=== PATIENT | female | born 1985 | race Caucasian/White ===

== ENCOUNTER → 2021-10-08 11:39 | Outpatient (CLI) | payer OTHER, SELFPAY ==
[2021-10-08 11:59] LABS: Add Manual Diff / Slide Review NO; Basophils Absolute Auto 100 /uL (0-100); Eosinophils Absolute Auto 200 /uL (0-450); Eosinophils Percent Auto 2.1 % (2-4); Hematocrit 37.6 % (36-46); Hemoglobin 12.9 g/dL (12.0-16.0); Lymphocytes Absolute Auto 1200 /uL (1100-4500); Lymphocytes Percent Auto 14.2 % (25-40); Mean Corpuscular HGB Conc 34.3 % (30-36); Mean Corpuscular Volume 81.8 fL (80-100); Monocytes Absolute Auto 600 /uL (0-900); Monocytes Percent Auto 7.8 % (3-14); Neutrophils Absolute Auto 6200 /uL (1500-7000); Neutrophils Percent Auto 74.9 % (50-75); Platelet Count 247 X10^3/uL (150-400); White Blood Cell Count 8.2 X10^3/uL (4.5-11.0)
[2021-10-08 12:14] LABS: Erythrocyte Sedimentation Rate 44 MM/HR (0-20)
[2021-10-08 12:15] LABS: Alanine Aminotransferase 17 IU/L (<35); Albumin 4.8 g/dL (3.5-5.0); Albumin Globulin Ratio 1.5 (1.0-2.8); Alkaline Phosphatase 71 U/L (38-126); Aspartate Aminotransferase 31 IU/L (14-36); BUN Creatinine Ratio 12.7 (6-22); Bilirubin Total 0.5 mg/dL (0.2-1.3); Blood Urea Nitrogen 7 mg/dL (7-17); Calcium 9.3 mg/dL (8.4-10.2); Carbon Dioxide 26 mmol/L (22-32); Chloride 105 mmol/L (98-107); Estimated Glomerular Filt Rate > 60 mL/min (>60); Globulin 3.2 g/dL (1.7-4.1); Glucose 106 mg/dL (70-100); HEMOLYSIS < 15 (0-50); Potassium 3.8 mmol/L (3.4-5.1); Sodium 141 mmol/L (137-145)
[2021-10-08 12:18] LABS: Rheumatoid Factor < 8.6 IU/mL (<12.0)
[2021-10-11 17:16] LABS: ANA Screen, IFA Negative (.)
== END ==
PROVIDERS: Referring Provider Family Medicine; Visit Provider Family Medicine
DX: R21 Rash and other nonspecific skin eruption (principal)
CPT/HCPCS: 36415; 80053; 85025; 85651; 86038; 86430

== ENCOUNTER → 2022-03-17 17:13 | Outpatient (CLI) | payer OTHER, SELFPAY ==
[2022-03-17 18:05] LABS: Add Manual Diff / Slide Review NO; Basophils Absolute Auto 100 /uL (0-100); Basophils Percent Auto 0.7 % (0-2); Eosinophils Absolute Auto 100 /uL (0-450); Eosinophils Percent Auto 0.6 % (2-4); Hematocrit 33.6 % (36-46); Hemoglobin 11.4 g/dL (12.0-16.0); Lymphocytes Absolute Auto 2100 /uL (1100-4500); Lymphocytes Percent Auto 19.1 % (25-40); Mean Corpuscular HGB Conc 34.1 % (30-36); Mean Corpuscular Hemoglobin 28.1 PG (26-34); Mean Corpuscular Volume 82.3 fL (80-100); Monocytes Absolute Auto 900 /uL (0-900); Monocytes Percent Auto 7.9 % (3-14); Neutrophils Absolute Auto 7700 /uL (1500-7000); Neutrophils Percent Auto 71.7 % (50-75); Platelet Count 277 X10^3/uL (150-400); Red Blood Cell Count 4.08 X10^6/uL (4.0-5.2); Red Cell Distribution Width 13.8 % (11.6-14.8); White Blood Cell Count 10.7 X10^3/uL (4.5-11.0)
[2022-03-17 18:29] LABS: Alanine Aminotransferase 15 IU/L (<35); Albumin 4.3 g/dL (3.5-5.0); Albumin Globulin Ratio 1.3 (1.0-2.8); Alkaline Phosphatase 69 U/L (38-126); Aspartate Aminotransferase 19 IU/L (14-36); Bilirubin Total 0.7 mg/dL (0.2-1.3); Blood Urea Nitrogen 7 mg/dL (7-17); Calcium 9.1 mg/dL (8.4-10.2); Carbon Dioxide 26 mmol/L (22-32); Chloride 98 mmol/L (98-107); Cholesterol 138 mg/dL (140-199); Estimated Glomerular Filt Rate > 60 mL/min (>60); Globulin 3.4 g/dL (1.7-4.1); Glucose 95 mg/dL (70-100); HDL Cholesterol 46 mg/dL (40-60); HEMOLYSIS < 15 (0-50); LDL Cholesterol Calculated 82 mg/dL (<100); Potassium 3.6 mmol/L (3.4-5.1); Sodium 139 mmol/L (137-145); Total Protein 7.7 g/dL (6.3-8.2); Triglycerides 51 mg/dL (35-150)
[2022-03-17 18:56] LABS: TSH w/ Reflex to FT4 0.42 uIU/mL (0.47-4.68)
[2022-03-17 19:45] LABS: Free T4, Direct Thyroxine 1.18 ng/dL (0.78-2.19)
== END ==
PROVIDERS: PCP Family Medicine; Referring Provider Family Medicine; Visit Provider Family Medicine
DX: Z00.00 Encounter for general adult medical examination without abnormal findings (principal)
CPT/HCPCS: 36415; 80053; 80061; 84439; 84443; 85025

== ENCOUNTER → 2022-06-20 12:09 | Outpatient (CLI) | payer OTHER, SELFPAY ==
--- NOTE | 2022-06-20 12:10 | DI.US.S_ITS ---
PROCEDURE: US PELVIC COMPLETE INDICATIONS: PCOS TECHNIQUE: Real-time scanning was performed of the pelvic organs, with image documentation. Additional endovaginal scanning was necessary due to incomplete visualization of the adnexal and endometrial structures by transabdominal scanning. COMPARISON: None. FINDINGS: Uterus: Uterus is retroverted and normal in size at 8.2 x 4.6 x 6.6 cm. The myometrium is homogeneous. The endometrium measures 15.3 mm combined thickness. Ovaries: The right ovary measures 4.1 x 2.5 x 2.8 cm, with a calculated ovarian volume of 14.4 cc. The left ovary measures 4.9 x 4.3 x 4.6 cm, with a calculated ovarian volume of 51 cc. Less than 12 follicles can be seen in each ovary. Complex ovarian cysts are seen bilaterally, each of which contain fine low level internal echoes with the largest on the left measuring up to 4.6 cm. Other: No pathologic free abdominal or pelvic fluid. IMPRESSION: 1. No sonographic evidence for polycystic ovarian syndrome. 2. Bilateral complex ovarian cyst, each of which contain fine low level internal echoes suggestive of a hemorrhagic ovarian cysts versus endometriomas. Short-term follow-up pelvic ultrasound in 6-12 weeks is recommended to assess for temporal stability and/or resolution. We strive to produce accurate, complete, and clear reports of imaging services. To assist us in improving patient care, this report was composed using standard report templates and voice recognition software. Therefore, it may contain abnormal punctuation, insertions and/or omissions. Occasional wrong-word or sound-alike substitutions may occur. Though we review the report and make efforts to correct it, we do recommend that the report be read carefully in proper context to recognize any text inaccuracies. Dictated by: Alexis Andrade Amado Interpreted: Mateus Boyd MD on 06/20/2022 at 13:03 Transcribed by: MANFRED on 06/20/2022 at 13:05 Approved by: Mateus Boyd M.D. on 06/20/2022 at 13:58
== END ==
PROVIDERS: PCP Family Medicine; Referring Provider Family Medicine; Visit Provider Family Medicine
DX: N83.291 Other ovarian cyst, right side; N83.292 Other ovarian cyst, left side
CPT/HCPCS: 76830; 76856; 93975

== ENCOUNTER 2022-07-28 14:01 | Day surgery (SDC) | payer OTHER, SELFPAY ==
--- NOTE | 2022-07-28 | PATH_ITS ---
[facility] Accession Number: [id number] No. of containers..01 Tissue . 01 Material submitted: . colon - TRANSVERSE COLON POLYP . 01 Diagnosis: Transverse Colon, Polyp, Biopsy: Tubular adenoma, 2 fragments. ARMANI 08/02/2022 0950 Local . 01 Electronically signed: . Fatmata Lutz MD, Pathologist NPI- [id number] . 01 Gross description: . TRANSVERSE COLON POLYP: Received in formalin are 2 fragment(s) of peralta, soft tissue measuring 0.5 x 0.4 x 0.3 cm to 0.4 x 0.3 x 0.3 cm submitted entirely in 1 cassette(s) /CPE 07/29/2022 0635 Local . 01 Pathologist provided ICD-10: D12.3 . 01 CPT . 250916 Specimen Comment: A courtesy copy of this report has been sent to [phone] Performed at: 01 [facility] [address] [place] [address] [address] [facility], [place], [place] [id number] MD Manpreet Barker MD Phone: [phone]
[2022-07-28 14:12] VITALS: BP 128/79; PULSE 75; RESP 12; TEMP 36.8; O2SAT 100; BMI 21.1
[2022-07-28] MEDS: LACTATED RINGERS 1,000 ML 42 ML IV (14:21)
--- NOTE | 2022-07-28 14:54 | P.HP_ITS ---
History of Present Illness History of Present Illness Date Patient Seen: 07/28/22 Time Patient Seen: 14:54 Chief complaint: Colonoscopy w/hemorrhoid banding Narrative: Rebecca is here for her colonoscopy and banding procedure. No significant changes since office visit in June. Patient History Medical History Abnormal Pap smear of cervix (~2020) Allergies Anemia Anxiety (~2015) Asthma Chicken pox (~2013) Fracture (~2015) Headache Heavy menstrual period (~2020) Hemorrhoid (~2015) Human papilloma virus (~2020) Migraines Osteoarthritis (~2020) Painful menstrual periods (~2020) Polycystic ovarian syndrome Rash and nonspecific skin eruption Well adult exam Surgical History Anesthesia History of tubal ligation (~2016) [place] teeth removed Family & Social History Family History Father Diabetes mellitus Hypertension Mental health problem Parkinson's disease Brother Cancer Hypertension Mental health problem Quadriplegia Social History: household members spouse Tobacco & Substance use: Smoking Status Former smoker alcohol intake current alcohol intake frequency holiday/special occasion Substance Use Type does not use Meds Home Medications and Allergies Allergies Allergy/AdvReac Type Severity Reaction Status Date / Time Neomycin, polymyxin B, and AdvReac Severe Swelling Uncoded 07/28/22 14:12 hydrocortisone Orajel AdvReac Severe pain Uncoded 07/28/22 14:12 Promethazine with codeine AdvReac Severe Migraine Uncoded 07/28/22 14:12 Imitrex AdvReac Intermediate Uncoded 07/28/22 14:12 gabapentin AdvReac Mild Uncoded 07/28/22 14:12 Toradol AdvReac Mild Migraine Uncoded 07/28/22 14:12 Sulfa AdvReac Rash Uncoded 07/28/22 14:12 Exam Vital Signs (past 8 hours): - 07/28/22 14:12 Temperature 98.3 F Pulse Rate 75 Respiratory Rate 12 Blood Pressure 128/79 Pulse Oximetry 100 Oxygen Delivery Method Room Air Oxygen Delivery Method Room Air Const General: healthy appearing Assessment & Plan Assessment and plan (1) Grade IV hemorrhoids: Status: Acute Plan She would like proceed with colonoscopy and rubber-band ligation. Time Spent With Patient Critical Care time: I spent a total of [] minutes of critical care time on this patient's care today; this time is exclusive of procedural time.
--- NOTE | 2022-07-28 15:39 | PM.OP.COLON ---
Operative Date/Time/Diagnoses Date of procedure: 07/28/22 Time of procedure: 15:39 Pre-op diagnosis: Hemorrhoids and rectal bleeding Post-op diagnosis: same Procedure & Clinicians Study performed: Colonoscopy and rubber-band ligation Same procedure as scheduled: Yes Surgeon: Rudolph Kern Procedure Notes Procedure in detail: Surgeon: Rudolph Kern MD Anesthesia: Oneyda Nichols CRNA Procedure: The patient was brought to the endoscopy suite, placed in left lateral decubitus position. The patient was connected to monitoring devices. A time-out was performed. Sedation was administered. Once the patient was adequately sedated, a digital rectal exam was performed and was normal. The scope was then inserted and advanced to the cecum where the appendiceal orifice was identified and photographed. The scope was then slowly withdrawn over greater than 6 minutes. The mucosa was thoroughly inspected. There was a 1.2 cm pedunculated polyp in the transverse colon. The polyp was removed with hot snare. The polyp was divided with the snare to allow suctioning into the trap. A tattoo was placed in the mucosa next to the polypectomy scar. No other abnormalities were noted throughout the colon. The scope was retroflexed in the rectum. Internal hemorrhoids were seen. The scope was straightened and removed. Next, the anoscope was inserted and rubber band ligation was performed of the hemorrhoid column in the left lateral, right anterior and right posterior position. Hemostasis was confirmed. The patient was awakened and brought to recovery. Scope withdrawal time: 9 minutes Sedation time: 27 minutes EBL: 2 mL Findings: 1.2 cm pedunculated polyp in the transverse colon and internal hemorrhoids Post-procedure Disposition: PACU
[2022-07-28 15:40] VITALS: BP 96/60; PULSE 60; RESP 14; TEMP 36.4; O2SAT 100
[2022-07-28 15:45] VITALS: BP 101/62; PULSE 65; RESP 15; O2SAT 100
[2022-07-28 15:50] VITALS: BP 110/65; PULSE 66; RESP 15; TEMP 36.9; O2SAT 100
[2022-07-28 16:10] VITALS: BP 111/62; PULSE 66; RESP 15; TEMP 36.7; O2SAT 100
== END 2022-07-28 16:14 | disposition home or self-care (01) ==
PROVIDERS: PCP Family Medicine; Referring Provider Surgery; Visit Provider Surgery
PROC: 0DJD8ZZ Inspection of Lower Intestinal Tract, Via Natural or Artificial Opening Endoscopic (ICD-10-PCS; CPT 45378; principal; 2022-07-28 15:00)
DX: K64.3 Fourth degree hemorrhoids (principal); K62.5 Hemorrhage of anus and rectum; D12.3 Benign neoplasm of transverse colon
CPT/HCPCS: 45385; 46221; J2704; J3010

== ENCOUNTER → 2023-11-18 08:17 | Outpatient (CLI) | payer OTHER, SELFPAY ==
[2023-11-18 09:07] LABS: Add Manual Diff / Slide Review NO; Basophils Absolute Auto 100 /uL (0-100); Basophils Percent Auto 0.7 % (0-2); Eosinophils Absolute Auto 100 /uL (0-450); Eosinophils Percent Auto 0.6 % (2-4); Hematocrit 35.8 % (36-46); Hemoglobin 11.9 g/dL (12.0-16.0); Lymphocytes Absolute Auto 1600 /uL (1100-4500); Lymphocytes Percent Auto 17.8 % (25-40); Mean Corpuscular HGB Conc 33.2 % (30-36); Mean Corpuscular Hemoglobin 27.1 PG (26-34); Mean Corpuscular Volume 81.4 fL (80-100); Monocytes Absolute Auto 1000 /uL (0-900); Monocytes Percent Auto 11.3 % (3-14); Neutrophils Absolute Auto 6100 /uL (1500-7000); Neutrophils Percent Auto 69.6 % (50-75); Platelet Count 271 X10^3/uL (150-400); Red Cell Distribution Width 15.3 % (11.6-14.8); White Blood Cell Count 8.8 X10^3/uL (4.5-11.0)
[2023-11-18 09:18] LABS: HEMOLYSIS < 15 (0-50); Iron 29 ug/dL (37-170)
[2023-11-18 09:21] LABS: Alanine Aminotransferase 11 IU/L (<35); Albumin 4.7 g/dL (3.5-5.0); Albumin Globulin Ratio 1.4 (1.0-2.8); Alkaline Phosphatase 65 U/L (38-126); Aspartate Aminotransferase 19 IU/L (14-36); BUN Creatinine Ratio 14.7 (6-22); Bilirubin Total 0.8 mg/dL (0.2-1.3); Blood Urea Nitrogen 10 mg/dL (7-17); Calcium 9.2 mg/dL (8.4-10.2); Carbon Dioxide 28 mmol/L (22-32); Chloride 103 mmol/L (98-107); Estimated Glomerular Filt Rate > 60 mL/min (>60); Globulin 3.4 g/dL (1.7-4.1); Glucose 100 mg/dL (70-100); HEMOLYSIS < 15 (0-50); Potassium 3.7 mmol/L (3.4-5.1); Sodium 139 mmol/L (137-145); Total Protein 8.1 g/dL (6.3-8.2)
[2023-11-18 09:30] LABS: Percent Iron Saturation 7 % (15-50); Total Iron Binding Capacity 395 ug/dL (265-497); Transferrin 311 mg/dL (206-381)
[2023-11-18 09:38] LABS: Free T4, Direct Thyroxine 0.96 ng/dL (0.78-2.19)
[2023-11-18 09:52] LABS: Thyroid Stimulating Hormone 0.506 uIU/mL (0.47-4.68)
[2023-11-18 09:54] LABS: Ferritin 22 ng/mL (6-137); Testosterone 13.6 ng/dL (5.71-77.0)
[2023-11-19 10:36] LABS: Triiodothyronine T3 Total 116 ng/dL (71-180)
[2023-11-20 14:08] LABS: Dehydroepiandrosterone Sulfate 44.8 ug/dL (57.3-279.2)
[2023-11-22 18:36] LABS: Thyroid Stimulating Immunoglob < 0.10 IU/L (0.00-0.55)
== END ==
PROVIDERS: PCP Registered Nurse Diabetes Educator; Referring Provider Registered Nurse Diabetes Educator; Visit Provider Registered Nurse Diabetes Educator
DX: D64.9 Anemia, unspecified (principal); L65.8 Other specified nonscarring hair loss; L65.0 Telogen effluvium; R79.89 Other specified abnormal findings of blood chemistry
CPT/HCPCS: 80053; 82627; 82728; 83540; 83550; 84403; 84439; 84443; 84445; 84480; 85025

== ENCOUNTER → 2023-11-29 12:25 | Outpatient (CLI) | payer OTHER, SELFPAY ==
[2023-11-29 14:01] LABS: Vitamin B12 458 pg/mL (239-931)
== END ==
PROVIDERS: PCP Registered Nurse Diabetes Educator; Referring Provider Registered Nurse Diabetes Educator; Visit Provider Registered Nurse Diabetes Educator
DX: D64.9 Anemia, unspecified (principal)
CPT/HCPCS: 36415; 82607

== ENCOUNTER → 2024-11-19 14:40 | Outpatient (CLI) | payer OTHER, SELFPAY ==
[2024-11-19 15:32] LABS: Add Manual Diff / Slide Review NO; Hematocrit 35.9 % (36-46); Hemoglobin 11.9 g/dL (12.0-16.0); Lymphocytes Absolute Auto 1800 /uL (1100-4500); Mean Corpuscular HGB Conc 33.3 % (30-36); Mean Corpuscular Hemoglobin 26.6 PG (26-34); Mean Corpuscular Volume 80.1 fL (80-100); Platelet Count 280 X10^3/uL (150-400)
[2024-11-19 15:48] LABS: HEMOLYSIS < 15 (0-50); Iron 44 ug/dL (37-170)
[2024-11-19 15:53] LABS: Alanine Aminotransferase 22 IU/L (<35); Albumin 4.7 g/dL (3.5-5.0); Albumin Globulin Ratio 1.7 (1.0-2.8); Alkaline Phosphatase 69 U/L (38-126); Blood Urea Nitrogen 10 mg/dL (7-17); Calcium 9.6 mg/dL (8.4-10.2); Carbon Dioxide 27 mmol/L (22-32); Chloride 102 mmol/L (98-107); Cholesterol 170 mg/dL (140-199); Estimated Glomerular Filt Rate > 60 mL/min (>60); Globulin 2.8 g/dL (1.7-4.1); Glucose 90 mg/dL (70-99); HDL Cholesterol 61 mg/dL (40-60); HEMOLYSIS < 15 (0-50); Potassium 3.7 mmol/L (3.4-5.1); Sodium 138 mmol/L (137-145); Total Protein 7.5 g/dL (6.3-8.2); Triglycerides 92 mg/dL (35-150)
[2024-11-19 16:03] LABS: Percent Iron Saturation 10 % (15-50); Total Iron Binding Capacity 445 ug/dL (265-497); Transferrin 376 mg/dL (206-381)
[2024-11-19 16:23] LABS: TSH w/ Reflex to FT4 1.19 uIU/mL (0.47-4.68)
[2024-11-19 16:24] LABS: Ferritin 8 ng/mL (6-137)
== END ==
PROVIDERS: PCP Registered Nurse Diabetes Educator; Referring Provider Registered Nurse Diabetes Educator; Visit Provider Registered Nurse Diabetes Educator
DX: R21 Rash and other nonspecific skin eruption (principal); D50.9 Iron deficiency anemia, unspecified; Z00.00 Encounter for general adult medical examination without abnormal findings
CPT/HCPCS: 36415; 80053; 80061; 82728; 83520; 83540; 83550; 84443; 85025; 85651; 86140